=== PATIENT | female | born 2000 | race Caucasian/White ===

== ENCOUNTER 2025-05-16 06:41 | Inpatient (IN) | payer OTHER ==
[~2025-05-16] VITALS: Ht 152.4 cm; Wt 88.5 kg
[2025-05-16 06:19] VITALS: BP 117/77
[~2025-05-16 06:41] MED LIST: AMPICILLIN SODIUM 2,000 MG VIAL ONE
[2025-05-16] MEDS ORDERED: AMPICILLIN SODIUM 2,000 MG VIAL IV SCH (06:52)
[2025-05-16] MEDS ORDERED: RINGERS SOLUTION,LACTATED 1,000 ML IV SCH (07:00)
[2025-05-16] MEDS ORDERED: PRENATAL TABLE1 EAC4 PO (07:22)
[2025-05-16 07:37] VITALS: BP 130/68
[2025-05-16 08:52] LABS: URINE APPEARANCE Clear; URINE BILIRRUBIN Negative (NEGATIVE); URINE BLOOD Small; URINE COLOR Yellow; URINE GLUCOSE Negative (NEGATIVE); URINE KETONE Negative (NEGATIVE); URINE LEUKOCYTE Negative; URINE NITRATE Negative; URINE PROTEIN Negative (NEGATIVE); URINE UROBILINOGEN 0.2 E.U./dl
[2025-05-16 08:56] LABS: URINE BACTERIA 65.1 uL (0.0-1933); URINE EPITHELIAL CELLS 4.9 uL (0.0-38.8); URINE RBC 3.6 uL (0.0-20.8); URINE WBC 4.9 uL (0.0-23.2)
[2025-05-16 08:58] LABS: BASO % 0.3 % (0.1-1.2); EOS # 0.06 (0.04-0.54); EOS % 0.5 % (0.7-7.0); LYMPH # 2.52 (1.18-3.74); LYMPH % 23.0 % (19.3-53.1); MEAN PLATELET VOLUME 10.40 fl (9.4-12.4); MONO # 1.13 (0.24-0.82); MONO % 10.3 % (4.7-12.5); NEUT # 7.13 (1.56-6.13); NEUT % 65.0 % (34.0-71.1); RED CELL DISTRIBUTION WIDTH 13.2 % (11.6-14.4)
[2025-05-16 09:00] LABS: URINE CAST 0.00 uL (0.0-1.40)
[2025-05-16 09:16] LABS: INR < 0.93
[2025-05-16 09:40] LABS: ALT/SGPT 28.0 U/L (12-78); AST/SGOT 21.0 U/L (15-37); BILIRUBIN TOTAL 0.21 mg/dL (0.3-1.2); BUN CREA RATIO 19.0 (7.0-25.0); CREATININE SERUM 0.52 mg/dL (0.55-1.02); GFR 144.87; GLOBULINA 3.6 G/DL (2.4-3.5); GLUCOSE FASTING 81.0 mg/dL (65-100); OSMOLALITY SERUM 281.0 MOSM/KG (275-295)
[2025-05-16] MEDS ORDERED: OXYTOCIN 20 UNITS/500ML RL PIGGYBAG IV ONE (12:24)
[2025-05-16 12:40] VITALS: BP 121/87
[2025-05-16] MEDS ORDERED: MORPHINE SULFATE 4 MG/ML VIAL IV ONE (12:45)
[2025-05-16] MEDS ORDERED: OXYTOCIN 500 ML IV SCH (13:00)
[2025-05-16] MEDS ORDERED: LIDOCAINE HCL 1% 10ML VIAL ONE (14:27)
[2025-05-16] MEDS ORDERED: CHLORHEXIDINE GLUCONATE 120 ML BOTTLE TOP ONE (14:27)
[2025-05-16] MEDS ORDERED: ERYTHROMYCIN BASE OPHT 1GM EACH TUBE OP ONE (14:27)
[2025-05-16] MEDS ORDERED: OXYTOCIN 20 UNITS/1000ML RL PIGGYBAG IV ONE (14:27)
[2025-05-16] MEDS ORDERED: ACETAMINOPHEN 500 MG GEL..CAP PO PRN (15:00)
[2025-05-16] MEDS ORDERED: OXYTOCIN 1,000 ML IV SCH (15:00)
[2025-05-16] MEDS ORDERED: CHLORHEXIDINE GLUCONATE 120 ML BOTTLE TOP SCH (15:00)
[2025-05-16 15:50] VITALS: BP 116/75; O2SAT 98
[2025-05-16] MEDS ORDERED: DOCUSATE SODIUM 100MG CAP PO SCH (17:00)
[2025-05-16] MEDS ORDERED: BENZOCAINE/MENTHOL 90 ML BOTTLE TOP SCH ×2 (18:00)
[2025-05-16 18:40] VITALS: BP 118/77
[2025-05-17] VITALS: BP 104/71
[2025-05-17 08:00] VITALS: BP 115/77
[2025-05-17 16:00] VITALS: BP 110/77
[2025-05-18] VITALS: BP 114/79
[2025-05-18 09:38] VITALS: BP 119/82
[2025-05-18 13:07] VITALS: BP 120/86
== END 2025-05-18 17:15 | disposition home or self-care (01) | DRG 805 ==
LOC: OB/GYN 06:41 → LDR 06:41 → OB/GYN 15:11
PROVIDERS: ADMIT Obstetrics & Gynecology; ATTEND Obstetrics & Gynecology
PROC: 10E0XZZ Delivery of Products of Conception, External Approach (ICD-10-PCS; principal; 2025-05-16)
PROC: 0KQM0ZZ Repair Perineum Muscle, Open Approach (ICD-10-PCS; 2025-05-16)
PROC: 4A1HXCZ Monitoring of Products of Conception, Cardiac Rate, External Approach (ICD-10-PCS; 2025-05-16)
DX: O70.1 Second degree perineal laceration during delivery (principal); O60.14X0 Preterm labor third trimester with preterm delivery third trimester, not applicable or unspecified; Z37.0 Single live birth; Z3A.36 36 weeks gestation of pregnancy